=== PATIENT | female | born 1965 | race Caucasian/White ===

== ENCOUNTER 2018-05-21 07:53 | Day surgery (SDC) | payer MEDICARE, OTHER ==
[~2018-05-21 07:53] MED LIST: ASPIRIN325 MG OR; BUPROPION100 M1 OR; BUPROPION150 M3 PO; CHILD ASA81 MG PO; CIPRO500 MG OR; CRESTOR10 MG OR; CYMBALTA60 MG PO; ECOTRIN325 MG OR; EQ ASPIRIN ADUL81 MG PO; EZETIMIBE10 MG; FLEXERIL PO; GABAPENTIN300 MG PO; LINZESS145 MCG; LIPITOR20 M1; LIPITOR40 MG PO; LOPRESSOR25 MG OR; LORTAB 7.5 PO; LORTAB5 PO; MELOXICAM7.5 MG OR; NAPROSYN500 MG PO; NITROGLYCER0.4 MG PO; NORCO1 TA1 PO; PERCOCET 5/325M1 TAB OR; PHENERGAN12.5 MG/TA PO; PHENERGAN25 MG/TAB PO; PLAVIX75 MG PO; PREVACID30 M3 PO; PRILOSEC20 MG PO; REXULTI2 MG; TEMAZEPAM30 MG PO; XANAX0.25 MG PO; ZESTRIL5 M1 PO
[2018-05-21 10:28] VITALS: BP 113/58
== END 2018-05-21 10:53 | disposition home or self-care (01) ==
LOC: ORM 07:53
PROVIDERS: ATTEND Anesthesiology Pain Medicine
PROC: 3E0R33Z Introduction of Anti-inflammatory into Spinal Canal, Percutaneous Approach (ICD-10-PCS; principal; 2018-05-21)
PROC: B01B1ZZ Fluoroscopy of Spinal Cord using Low Osmolar Contrast (ICD-10-PCS; 2018-05-21)
DX: M54.16 Radiculopathy, lumbar region (principal)
CPT/HCPCS: Q9967

== ENCOUNTER 2018-06-04 07:06 | Day surgery (SDC) | payer MEDICARE, OTHER ==
[2018-06-04] MEDS ORDERED: ZETIA10 MG PO (07:25)
[2018-06-04 09:14] VITALS: BP 105/65
== END 2018-06-04 09:32 | disposition home or self-care (01) ==
LOC: ORM 07:06
PROVIDERS: ATTEND Anesthesiology Pain Medicine
PROC: 3E0R33Z Introduction of Anti-inflammatory into Spinal Canal, Percutaneous Approach (ICD-10-PCS; principal; 2018-06-04)
DX: M54.16 Radiculopathy, lumbar region (principal); M54.5 Low back pain; M79.605 Pain in left leg
CPT/HCPCS: Q9967

== ENCOUNTER 2018-06-25 06:17 | Day surgery (SDC) | payer MEDICARE, OTHER ==
[~2018-06-25 06:17] MED LIST changes: +ZETIA10 MG PO
[2018-06-25 08:08] VITALS: BP 127/79
== END 2018-06-25 08:40 | disposition home or self-care (01) ==
LOC: ORM 06:17
PROVIDERS: ATTEND Anesthesiology Pain Medicine
PROC: 3E0R33Z Introduction of Anti-inflammatory into Spinal Canal, Percutaneous Approach (ICD-10-PCS; principal; 2018-06-25)
PROC: B01B1ZZ Fluoroscopy of Spinal Cord using Low Osmolar Contrast (ICD-10-PCS; 2018-06-25)
PROC: 3E0U33Z Introduction of Anti-inflammatory into Joints, Percutaneous Approach (ICD-10-PCS; 2018-06-25)
PROC: 3E0U3BZ Introduction of Anesthetic Agent into Joints, Percutaneous Approach (ICD-10-PCS; 2018-06-25)
DX: M54.16 Radiculopathy, lumbar region (principal); M46.1 Sacroiliitis, not elsewhere classified
CPT/HCPCS: 62323; G0260; Q9967

== ENCOUNTER 2023-07-13 18:04 | Emergency (ER) | payer MEDICARE ==
[~2023-07-13] VITALS: Ht 170.2 cm; Wt 136.0 kg
[2023-07-13] VITALS (7 sets, daily range): BP systolic 125–137; BP diastolic 81–89
[~2023-07-13 18:04] MED LIST changes: +VOLTAREN1%GEL TOP
[2023-07-13 18:30] LABS: BASO% 0.6 % (0-3); EOS% 3.1 % (0-8); HEMATOCRIT 43.6 % (37.0-47.0); HEMOGLOBIN 13.9 g/dl (12.0-16.0); IMMATURE GRANULOCYTES 0.1 % (0.0-5.0); LYMPH% 20.5 % (15-41); MEAN CELL VOLUME 91.2 fL CALC (80.0-100.0); MEAN CORPUSCULAR HGB 29.1 pG CALC (26.0-32.0); MEAN CORPUSCULAR HGB CONC 31.9 g/dL CAL (32.0-36.0); NEUT# 5.64 thou/uL (2.00-7.15); NEUT% 67.7 % (42-76); RED BLOOD COUNT 4.78 mill/uL (4.20-5.60); RED CELL DISTRI WIDTH 15.2 % (11.5-15.5)
[2023-07-13 19:08] LABS: ALBUMIN 3.9 g/dL (3.2-5.0); ALKALINE PHOSPHATASE 172 u/l (38-126); ANION GAP 15 (6-22 (CALC)); BILIRUBIN, TOTAL 0.5 mg/dL (0.02-1.3); CARBON DIOXIDE 23 mmol/l (22-30); CHLORIDE 104 mmol/l (95-108); POTASSIUM 4.7 mmol/l (3.5-5.1); SGOT/AST 38 u/l (14-36); SODIUM 138 mmol/l (137-146); TOTAL PROTEIN 7.8 g/dL (6.3-8.2)
[2023-07-13 19:12] LABS: BUN 21 mg/dL (7-17); BUN/CREATININE RATIO 23 (12-20 (CALC)); CREATININE 0.9 mg/dL (0.5-1.0); GFR FOR AFR.AMER. > 60 ML/MIN (>=60 (CALC)); GFR OTHER RACES > 60 ML/MIN (>=60 (CALC))
[2023-07-13] MEDS ORDERED: ULTRAM50 MG PO (19:23)
[2023-07-13] MEDS ORDERED: CYCLOBENZAPRINE10 MG PO (19:24)
== END 2023-07-13 19:40 | disposition home or self-care (01) ==
LOC: ED 18:04
PROVIDERS: Emergency Medicine
DX: S43.401A Unspecified sprain of right shoulder joint, initial encounter (principal); I10 Essential (primary) hypertension; E66.9 Obesity, unspecified; X58.XXXA Exposure to other specified factors, initial encounter; Z79.84 Long term (current) use of oral hypoglycemic drugs